=== PATIENT | female | born 1975 | race Caucasian/White ===

== ENCOUNTER 2017-03-13 02:23 | Inpatient (IN) | payer OTHER ==
[~2017-03-13] VITALS: Ht 165.1 cm; Wt 72.6 kg
[~2017-03-13 02:23] MED LIST: DOLOPHINE10 MG PO; ROXICODONE30 MG PO
--- NOTE | 2017-03-13 10:13 | Operative Report ---
Operative/Inv Procedure Report Surgery Date: 03/13/17 Name of Procedure: Endoscopies exploratory laparotomy left ovarian cystectomy peritoneal washings and removal of stents Pre-Operative Diagnosis: Pelvic pain Post-Operative Diagnosis: Same 9 cm left ovarian cyst Estimated Blood Loss: 50ml to 100ml Surgeon/Over Hauler Helper: Melquiades JAMES,Trish Sibley and Dr. Stepan Madrid and [facility] Anesthesia: general endotracheal tube, block Operative/Procedure Note Note: Procedure note patient was taken to the operating room placed supine position after adequate anesthesia patient placed in dorsolithotomy position the vagina from dorsal fashion bladder was catheterized examination under anesthesia performed CO2 tenaculum was placed on the Intralipid cervix gentle downward traction Tomas cannula was left in place I at the level the umbilicus a stab incision was made to allow for the entry of Veress needle the on was insufflated possibly 4 L of CO2 to liver edge dullness which point the Veress needle was removed a 10 mm trocar was on inserted through the umbilicus after negative drop test through that sheath a laparoscope was placed under direct visualization a 5 mm port was placed to bring minutes of symptoms pubis in the midline the ovarian cyst could not be elevated into the surgical field at this point we converted to an open surgery the incision at the umbilicus was closed the fascia for 0 the skin was reapproximated with 30 on at this point the incision 2 fingerbreadths of symptoms pubis was carried down to rectus fascia which was cut in curvilinear fashion I direction peritoneal cavity was entered high into the abdomen Szymanski O'Jeremiah lap pads placed in usual fashion at this point the on peritoneal washings were obtained on the left ovary was elevated into the field on there appeared to be minimal normal ovarian tissue the entire ovary was taken all by a 9 cm epithelial cyst on this was clamped using right angles the cyst wall was opened cyst fluid had been sent to pathology and the cyst fluid was removed and oversewn using running locking suture of 00 on the abdomen was area close amounts warm saline on surgical site was resutured for hemostasis on the tube I on the left appeared normal post surgery on the Rachna was applied to the surgical site all lap pads removed from the abdomen low retractors removed from the abdomen on since removed from the abdomen peritoneum was reapproximated 0 the fascia was reapproximated to continue sutures of #1 skin was reapproximated kinjal at the end of the case the Tomas cannula was moved the stents removed bilaterally intact on and the patient was awakened from anesthesia and transferred recovery room awake alert with counts correct Findings: Uterus on the fibroid normal right ovary and tube normal left tube 9 cm epithelial cyst streak ovary on the left
[2017-03-13 16:31] LABS: ABSOLUTE BASOPHIL COUNT 0 /CUMM (0.0-0.2); ABSOLUTE EOSINOPHIL COUNT 0 /CUMM (0.0-0.7); ABSOLUTE GRANULOCYTE CT 13.4 /CUMM (1.4-6.5); ABSOLUTE LYMPH COUNT 0.8 /CUMM (1.2-3.4); ABSOLUTE MONOCYTE COUNT 0.1 /CUMM (0.10-0.60); BASOPHIL % 0.1 % (0.0-2.0); EOSINOPHIL % 0 % (0-5); GRANULOCYTE % 93.8 % (42.2-75.2); HEMATOCRIT 40.5 % (37-47); MEAN CORPUSCULAR HGB 29.1 PG (27.0-31.0); MEAN CORPUSCULAR HGB CONC 32.6 G/DL (33.0-37.0); MEAN CORPUSCULAR VOLUME 89.4 FL (81.0-99.0); MEAN PLATELET VOLUME 9.8 FL (7.4-10.4); PLATELET COUNT 185 /CUMM (130-400); RBC DISTRIBUTION WIDTH 13.9 % (11.5-14.5); RED BLOOD CELL CT 4.53 /CUMM (4.20-5.40); WHITE BLOOD CELL COUNT 14.3 /CUMM (4.8-10.8)
[2017-03-14 07:56] LABS: ABSOLUTE BASOPHIL COUNT 0 /CUMM (0.0-0.2); ABSOLUTE EOSINOPHIL COUNT 0 /CUMM (0.0-0.7); ABSOLUTE LYMPH COUNT 1.7 /CUMM (1.2-3.4); ABSOLUTE MONOCYTE COUNT 0.8 /CUMM (0.10-0.60); BASOPHIL % 0.2 % (0.0-2.0); EOSINOPHIL % 0 % (0-5); GRANULOCYTE % 84.4 % (42.2-75.2); HEMATOCRIT 36.3 % (37-47); MEAN CORPUSCULAR HGB CONC 33.6 G/DL (33.0-37.0); MEAN CORPUSCULAR VOLUME 89.2 FL (81.0-99.0); PLATELET COUNT 172 /CUMM (130-400); RBC DISTRIBUTION WIDTH 13.5 % (11.5-14.5); RED BLOOD CELL CT 4.06 /CUMM (4.20-5.40); WHITE BLOOD CELL COUNT 16.5 /CUMM (4.8-10.8)
--- NOTE | 2017-03-14 17:39 | PN- Obstetrical ---
Subjective Subjective: NO COMPLAINTS Objective Last 24 Hrs of Vital Signs/I&O Vital Signs Date Time Temp Pulse Resp B/P B/P Pulse O2 O2 Flow FiO2 Mean Ox Delivery Rate 03/14 0810 Nasal 1.5L Cannula Physical Exam: PE PALE WF IN NAD ABD SOFT NT INCISION CDI EXT -PAULINA A - HOMANS Obstetric Exam Dilation (cm): 0 Effacement (%): 0 Station: 0 Membranes: unknown Fluid: unknown Multiple Gestation? No Contractions: NONE Assessment/Plan Assessment/Plan ASSESS S/PLEFT OVARIAN CYSTECTOMY PLAN CONT POC
[2017-03-14] MEDS ORDERED: NICOTINE PATCH1 EAC2 TOP (21:37)
[2017-03-14] MEDS ORDERED: PERCOCET 5-3251 EACH PO (21:37)
[2017-03-14] MEDS ORDERED: NAPROXEN500 M2 PO (21:37)
[2017-03-14] MEDS ORDERED: METHADONE HCL10 M1 PO (21:37)
--- NOTE | 2017-03-19 07:07 | Operative Report ---
Operative/Inv Procedure Report Surgery Date: 03/13/17 Name of Procedure: cystoscopy: bilateral stent insertion Pre-Operative Diagnosis: Menometrorrhagia. Pelvic pain. Post-Operative Diagnosis: same Estimated Blood Loss: scant Surgeon/Property Utilization Manager: MD Gaitan Arnold-Urology Anesthesia: general endotracheal tube Specimens: ucx Complications: none Operative/Procedure Note Note: The patient was taken to the operating room and placed on the OR table in supine position. Timeout was performed, with the patient awake, to confirm correct identify, planned procedures, anesthesia, antibiotics, and other pertinent marlin -operative information. After adequate anesthesia, and IV antibiotics, the patient was placed in lithotomy Yellow-fin stirrups. She was then draped and prepped in the usual surgical fashion, including a vaginal prep. A 22 Bengali cystoscope sheath with a 30 angle lens was inserted into the bladder without significant difficulty. The bladder was thoroughly and systematically examined, and was noted to be free of tumor, free of stone, free of endometriosis. Both ureteral orifices were in their orthotopic positions with clear reflux bilaterally. Under direct visualization the left orifice was intubated with a 5 Bengali whistle-tip catheter, which was advanced easily into the left kidney pelvis. The right ureteral orifice was intubated with a second 5 Bengali ureteral whistle tip catheter, and advanced into the right renal pelvis without difficulty. For identification purposes the blue marked stent went into the left kidney, and the right ureteral stent was marked red. Urine culture was obtained and sent to pathology. The cystoscope was then removed leaving both stents in proper place. An 18 Bengali Arnold catheter was inserted draining clear fluid and 10 mL of sterile water was then placed in the balloon. The ends of the ureteral stents, which protruded externally, were taped to the Arnold catheter in order to secure their position. The individual ureteral stents were then connected to their individual drainage devices. The patient tolerated the procedure well. All sponge needle and instrument count were correct at the end of this procedure. The patient was then repositioned in supine position, and Venodynes were placed on the lower extremeties bilaterally. At this point, Dr. Villanueva was able to proceed with the patient's surgery. Discharge Disposition: proceed with dr. villanueva CC: Beto Gaitan MD
--- NOTE | 2017-03-20 08:50 | Surgical Discharge Summary ---
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 Turkmen Review of Systems: -13 point review of systems Hospital Course Course Attending Physician: Trish Arnett MD Primary Care Physician: Rhys JAMES,[facility] Course: She was admitted for an exploratory laparotomy after her laparoscopy had demonstrated a 7-8 cm left ovarian cyst that was adherent to the cul-de-sac and could not be removed laparoscopically. Allergies: Coded Allergies: No Known Allergies (03/11/17) Disposition Summary Disposition Principal Diagnosis: Pelvic mass Additional Diagnosis: Pelvic pain Discharge Disposition: home or self care Discharge Instructions General Discharge Information Code Status: Full Code Patient's Diet: Regular Patient's Activity: Pelvic rest for 6 weeks no heavy lifting for 6 weeks no driving for 2 weeks Follow-Up Instructions/Appts: 1 week in my office for removal of kinjal Medications at Discharge Discharge Medications: Stop taking the following medications: Methadone Hydrochloride (Dolophine) 10 MG TABLET ORAL 4 TIMES A DAY as needed for PAIN Oxycodone HCL (Roxicodone) 30 MG TABLET ORAL 4 TIMES A DAY as needed for PAIN Start taking the following new medications: Nicotine (Nicotine Patch) 14 MG/24 HOUR PATCH.TD24 14 Milligram On the skin DAILY Qty = 30 No Refills Comments: Last Taken:03/14/17 Time:1120 Naproxen (Naproxen) 500 MG TABLET 500 Milligram ORAL EVERY 4-6 HOURS NEEDED as needed for PAIN SCALE 4-6 ( MODERATE) Qty = 30 No Refills Comments: Last Taken:03/15/17 Time:0815 Methadone Hydrochloride (Methadone HCl) 10 MG TABLET 95 Milligram ORAL DAILY Qty = 1 No Refills Comments: Last Taken:03/14/17 Time:0830 Oxycodone HCl/Acetaminophen (Percocet 5-325 MG Tablet) 5 MG-325 MG TABLET 1 Tablet ORAL EVERY 4 HOURS NEEDED as needed for PAIN SCALE 7-10 (SEVERE) Qty = 30 No Refills Comments: Last Taken:03/15/17 Time:0815
== END 2017-03-15 09:20 | DRG 513 ==
LOC: STS 02:23 → SDA 07:00 → EDSTATUS 07:00 → PACUH 10:00 → ENRESERV 11:53 → ENTRNSPT 12:35 → EDTRNSPTSTS 12:50 → GNO 13:00 → CMPTRNSPT 13:09 → GNO 03-15 09:20
PROVIDERS: Specialist
PROC: 3E1M38Z Irrigation of Peritoneal Cavity using Irrigating Substance, Percutaneous Approach (ICD-10-PCS; principal; 2017-03-13)
PROC: 0UT10ZZ Resection of Left Ovary, Open Approach (ICD-10-PCS; principal; 2017-03-13)
PROC: 0UJ34ZZ Inspection of Ovary, Percutaneous Endoscopic Approach (ICD-10-PCS; principal; 2017-03-13)
PROC: 3E0T3BZ Introduction of Anesthetic Agent into Peripheral Nerves and Plexi, Percutaneous Approach (ICD-10-PCS; 2017-03-13)
PROC: 0T744DZ Dilation of Left Kidney Pelvis with Intraluminal Device, Percutaneous Endoscopic Approach (ICD-10-PCS; 2017-03-13)
PROC: 0T734DZ Dilation of Right Kidney Pelvis with Intraluminal Device, Percutaneous Endoscopic Approach (ICD-10-PCS; 2017-03-13)
PROC: HZ91ZZZ Pharmacotherapy for Substance Abuse Treatment, Methadone Maintenance (ICD-10-PCS; 2017-03-14)
DX: N83.202 Unspecified ovarian cyst, left side (principal); F17.210 Nicotine dependence, cigarettes, uncomplicated; F32.9 Major depressive disorder, single episode, unspecified; Z88.1 Allergy status to other antibiotic agents; F11.20 Opioid dependence, uncomplicated; J45.909 Unspecified asthma, uncomplicated; Z79.51 Long term (current) use of inhaled steroids
CPT/HCPCS: GNOS; 36415; 81001; 81025; 87086; 88305; 88307; C9399; J0131; J1170; J1650; J1885; J3490